=== PATIENT | male | born 1995 | race Two or more races ===

== ENCOUNTER 2022-08-01 08:53 | Emergency (ER) | payer OTHER ==
[~2022-08-01] VITALS: Ht 175.3 cm; Wt 72.1 kg
[2022-08-01] MEDS ORDERED: SINGULAIR4 M1 PO (09:01)
[2022-08-01] MEDS ORDERED: CLONIDINE HCL10 GM MC (09:01)
[2022-08-01] MEDS ORDERED: FLUOXETINE DR90 MG PO (09:01)
== END 2022-08-01 10:22 | disposition home or self-care (01) ==
LOC: ER 08:53
DX: H01.001 Unspecified blepharitis right upper eyelid (principal); Z91.018 Allergy to other foods